=== PATIENT | female | born 1965 | race Caucasian/White ===

== ENCOUNTER 2017-05-05 16:00 | Emergency (ER) | payer BC ==
[2017-05-05 16:29] LABS: BASOPHIL (%) 0.2 % (0-1); EOSINOPHIL (%) 0.7 % (0-5); EOSINOPHIL COUNT 0.1 K/uL (0-0.3); HEMATOCRIT 38.5 % (36.0-46.0); LYMPHOCYTE (%) 14.1 % (15-42); LYMPHOCYTE COUNT 1.3 K/uL (1.0-2.8); MCHC 33.8 G/DL (30.0-36.0); MCV 91.9 FL (83-99); MONOCYTE COUNT 0.5 K/uL (0-0.8); NEUTROPHIL COUNT 7.1 K/uL (1.8-6.4); PLATELET COUNT 228 K/uL (156-360); RBC DIS.WIDTH-CV 12.5 % (11.8-14.6); RBC DIS.WIDTH-SD 42.4 % (39-53); RED BLOOD COUNT 4.19 M/uL (3.80-5.20); WHITE BLOOD COUNT 9.1 K/uL (4.1-10.2)
[2017-05-05 16:41] LABS: AMYLASE 87 IU/L (1-118); CHLORIDE 104 mEq/L (99-109); POTASSIUM 4.4 mEq/L (3.7-5.4); SODIUM 142 mEq/L (136-147)
[2017-05-05 16:43] LABS: GLUCOSE 117 mg/dL (70-99)
[2017-05-05 16:46] LABS: SERUM ETHYL ALCOHOL < 10 mg/dL
[2017-05-05 16:47] LABS: CREATININE 0.8 mg/dL (0.6-1.3)
[2017-05-05 16:48] LABS: UREA NITROGEN (BUN) 19 mg/dL (9-23)
[2017-05-05 16:50] LABS: GFR ESTIMATE (CALCULATED) > 59 mL/min/; LIPASE 31 U/L (1.0-51.0)
[2017-05-05 16:56] LABS: QUANTITATIVE HCG < 4.0 MIU/ML
[2017-05-05] MEDS ORDERED: PERCOCET 5/31 TABLET PO (17:50)
== END 2017-05-05 19:40 | disposition home or self-care (01) ==
LOC: TRA 16:00
PROVIDERS: Emergency Medicine
DX: S20.211A Contusion of right front wall of thorax, initial encounter (principal); R51 Headache; M25.511 Pain in right shoulder; W00.0XXA Fall on same level due to ice and snow, initial encounter; Y93.23 Activity, snow (alpine) (downhill) skiing, snowboarding, sledding, tobogganing and snow tubing; F32.9 Major depressive disorder, single episode, unspecified
CPT/HCPCS: 70450; 71260; 72040; 73030; 74177; 80048; 81003; 82150; 83690; 84702; 85025; 86850; 86900; 86901; 93005; 99281; 99284; G0480